=== PATIENT | female | born 1995 | race Hispanic/Latino ===

== ENCOUNTER → 2017-01-06 | Outpatient (REF) | payer OTHER ==
[~2017-01-06] MED LIST: CEPH250REC PO; HYDR1SOL PO; IBUP800T23 PO
== END ==
LOC: M LAB REF 16:59
PROVIDERS: ATTEND Physician Assistant
DX: N39.0 Urinary tract infection, site not specified (principal)

== ENCOUNTER → 2017-04-08 | Outpatient (CLI) | payer OTHER ==
[~2017-04-08] MED LIST changes: +IBUP1TAB7 PO; -IBUP800T23 PO
[2017-04-08 17:57] LABS: PROLACTIN 11.1 NG/ML
[2017-04-08 17:59] LABS: FREE T4 0.95 NG/DL (0.76-1.46)
== END ==
LOC: M SMT 15:09
PROVIDERS: ATTEND Physician Assistant Medical
DX: O92.6 Galactorrhea (principal)

== ENCOUNTER → 2017-04-28 | Outpatient (CLI) | payer OTHER | LOC: M SMT 14:05 | PROVIDERS: ATTEND Physician Assistant Medical | DX: Z11.3 Encounter for screening for infections with a predominantly sexual mode of transmission (principal) ==

== ENCOUNTER → 2017-05-07 | Outpatient (CLI) | payer OTHER ==
[2017-05-11 08:07] LABS: HSV TYPE I IgM AB <1:10 titer (<1:10); HSV TYPE II IgM ABY <1:10 titer (<1:10)
== END ==
LOC: M SMT 13:44
PROVIDERS: ATTEND Physician Assistant Medical
DX: Z11.3 Encounter for screening for infections with a predominantly sexual mode of transmission (principal)

== ENCOUNTER → 2018-04-02 | Outpatient (REF) | payer OTHER | LOC: M SFHCLERA 12:57 | DX: R30.0 Dysuria (principal) | CPT/HCPCS: 87086 ==